=== PATIENT | female | born 1965 | race Caucasian/White ===

== ENCOUNTER → 2017-02-11 | Outpatient (CLI) | payer BC ==
[2017-02-11 09:48] LABS: BASO % 0.8 %; BASO ABS # 0.06 K/uL (0-0.2); COMPLETE YES; EOS % 3.1 %; HEMATOCRIT 42.7 % (37-47); IG% 0.1 %; LYMPH ABS # 2.62 K/uL (1.2-3.4); MEAN CELL VOLUME 91.6 fL (80-100); MEAN CORPUSCULAR HEMOGLOBIN 31.1 pg (25-34); MEAN PLATELET VOLUME 9.5 fL (7.4-10.4); PLATELET COUNT 249 K/uL (130-400); RED BLOOD COUNT 4.66 M/uL (4.2-5.4); WHITE BLOOD COUNT 7.08 K/uL (4.8-10.8)
[2017-02-11 10:13] LABS: ALB/GLOB RATIO 1.2 (0.9-2); ALKALINE PHOSPHATASE 89 U/L (45-117); ALT/SGPT 35 U/L (12-78); AST/SGOT 18 U/L (15-37); BLOOD UREA NITROGEN 13 mg/dl (7-18); BUN/CREATININE RATIO 16.9 (10-20); CALCIUM 9.3 mg/dl (8.5-10.1); CARBON DIOXIDE 29 mmol/L (21-32); CHLORIDE 110 mmol/L (98-107); CREATININE 0.79 mg/dl (0.60-1.20); GLUCOSE 78 mg/dl (70-99); POTASSIUM 4.2 mmol/L (3.5-5.1); SODIUM 145 mmol/L (136-145)
[2017-02-11 10:24] LABS: CHOLESTEROL 206 mg/dl (0-200); CHOLESTEROL/HDL RATIO 2.9; HDL CHOLESTEROL 72 mg/dl; LDL CHOLESTEROL CALCULATED 111 mg/dl; TRIGLYCERIDES 115 mg/dl (0-150); VERY LOW DENSITY LIPOPROT CALC 23 mg/dl
== END | disposition home or self-care (01) ==
LOC: C.LAB 08:16
PROVIDERS: ATTEND Nurse Practitioner Adult Health
DX: Z00.00 Encounter for general adult medical examination without abnormal findings (principal); E03.9 Hypothyroidism, unspecified; E78.5 Hyperlipidemia, unspecified

== ENCOUNTER → 2017-10-03 | Outpatient (CLI) | payer BC ==
--- NOTE | 2017-10-06 15:08 | MAMMOGRAPHY REPORT ---
THIS REPORT HAS BEEN AMENDED. BILATERAL DIGITAL SCREENING MAMMOGRAM TOMOSYNTHESIS WITH CAD: 10/03/2017 CLINICAL HISTORY: Routine screening examination. TECHNIQUE: Breast tomosynthesis in addition to standard 2D mammography was performed. Current study was also evaluated with a Computer Aided Detection (CAD) system. COMPARISON: No prior exams were available for comparison. BREAST COMPOSITION: The tissue of both breasts is heterogeneously dense, which may obscure small mas ses. FINDINGS: There are a few scattered benign round microcalcifications in the breasts. No suspicious m ass, architectural distortion or cluster of suspicious microcalcifications is seen. IMPRESSION: ACR BI-RADS CATEGORY 1: NEGATIVE There is no mammographic evidence of malignancy in the breasts. However, prior outside mammograms ar e currently being requested and if obtained they will be reviewed, compared to the current exam to as sess for any more subtle changes, and an addendum will be made to this report. Otherwise, a 1 year s creening mammogram is recommended. The patient will receive written notification of the results. Approximately 10% of breast cancers are not detected with mammography. A negative mammographic report should not delay biopsy if a clinically suggestive mass is present. Ida Paiz M.D. ay/:10/06/2017 13:31:33 [employer]: Nina WEBSTER(R)(M), [facility] letter sent: Normal 09/30 BI-RADS Code: ACR BI-RADS Category 1: Negative AMENDMENT: 10/10/2017 Ida Paiz M.D. Prior outside mammograms from [facility] dated 04/05/2016, 02/10/2014 and 0 became available for review. The joint pattern appears very similar to the 2016 mammograms, includ ing a stable asymmetry in the slightly medial right breast. A few benign round microcalcifications. No new suspicious masses, calcifications, areas of architectural distortion or asymmetries are ident ified bilaterally. Recommend routine screening in 1 year. Amended BI-RADS: ACR BI-RADS Category 1: Negative letter sent: Normal 1/2
== END | disposition home or self-care (01) ==
LOC: C.MAMM 15:23
PROVIDERS: ATTEND Nurse Practitioner Adult Health
DX: Z12.31 Encounter for screening mammogram for malignant neoplasm of breast (principal)

== ENCOUNTER → 2018-05-05 | Outpatient (CLI) | payer BC ==
[~2018-05-05] MED LIST: ACET-1256 PO; LEVO75TA PO; METH-445 PO; MULT-506 PO; PSEU30TA3 PO
--- NOTE | 2018-05-05 09:08 | DIAGNOSTIC IMAGING REPORT ---
MRI OF THE CERVICAL SPINE WITHOUT IV CONTRAST CLINICAL HISTORY: Cervicalgia. COMPARISON STUDY: Radiographs of the cervical spine dated 02/28/2018. TECHNIQUE: MRI of the cervical spine is performed utilizing various T1 and T2-weighted sequences in the axial and sagittal planes. IV contrast was not administered for this examination. FINDINGS: Cervical spine: Vertebral body height is maintained throughout the cervical spine. There is minimal retrolisthesis at C5-C6. Alignment is otherwise preserved. There is straightening of the cervical lordosis. The atlantodental articulation appears maintained noting productive degenerative change. The spinous processes are intact as imaged. No destructive bony lesion or marrow replacement process is identified. Small anterior osteophytes are seen in the lower cervical region. Intervertebral discs: Degenerative disc desiccation is seen throughout the cervical spine. Mild loss of height is noted at C5-C6. The remaining disc spaces appear preserved. Spinal cord: The cervical spinal cord is normal in morphology and signal intensity. C2-C3: Unremarkable. C3-C4: The central canal is widely patent. Mild facet arthropathy is of no consequence. The neural foramina are clear. C4-C5: A tiny posterior disc bulge minimally effaces the ventral subarachnoid space. The neural foramina are widely patent. C5-C6: A small posterior disc osteophyte complex minimally effaces the ventral subarachnoid space. Uncovertebral and facet arthropathy causes mild left greater than right neural foraminal stenosis. C6-C7: There is a minimal posterior disc osteophyte complex of no confluence. The central canal and neural foramina are patent. C7-T1: Unremarkable. Soft tissues: The prevertebral and paraspinous soft tissues are normal in appearance. Brain parenchyma: The imaged brain parenchyma at the skull base is normal in appearance. IMPRESSION: 1. There is no disc herniation or significant central canal stenosis. 2. Mild spondylotic change. See discussion for detailed level analysis. 3. The cervical spinal cord is normal in morphology and signal intensity. Dictated: 05/05/2018 7:55 AM Transcribed: 05/05/2018 9:08 AM [facility] Electronically signed by: Angus Holder M.D. 05/05/2018 9:12 AM Dictated Date/Time: 05/05/2018 7:55 AM
== END | disposition home or self-care (01) ==
LOC: C.MRIBC 06:46
PROVIDERS: ATTEND Physician Assistant Medical
DX: M54.2 Cervicalgia (principal)